=== PATIENT | female | born 1960 | race African-American/Black ===

== ENCOUNTER 2022-04-28 11:22 | Inpatient (IN) | payer MEDICAID, OTHER ==
[~2022-04-28] VITALS: Ht 157.5 cm; Wt 158.9 kg
[2022-04-28] MEDS ORDERED: ACETAMINOPHEN 650 MG/ISO-OSM 65 ML IV ONE (12:15)
[2022-04-28] MEDS ORDERED: SODIUM CHLORIDE 0.9% 500 ML IV ONE (12:15)
[2022-04-28 12:23] LABS: BASOPHILS % (AUTO) 0.5 % (0.0-2.0); EOSINOPHILS % (AUTO) 0 % (1.0-6.0); HEMATOCRIT 34.5 % (36-46); HEMOGLOBIN 11.4 g/dL (12.0-16.0); LYMPHOCYTES # (AUTO) 0.5 K/uL (1.0-4.8); LYMPHOCYTES % (AUTO) 4.7 % (22.0-44.0); MEAN CORPUSCULAR HEMOGLOBIN 31.3 pg (26.0-34.0); MEAN CORPUSCULAR HGB CONC 33.1 G/dL (31.0-37.0); MEAN CORPUSCULAR VOLUME 95 fL (80-100); MONOCYTES # (AUTO) 0.8 K/uL (0.1-1.0); MONOCYTES % (AUTO) 7.3 % (2.0-9.0); NEUTROPHILS # (AUTO) 9.7 K/uL (1.8-7.7); PLATELET COUNT (AUTO) 167 K/uL (150-450); RED BLOOD CELL COUNT(AUTO) 3.65 MIL/uL (4.00-5.20); RED CELL DISTRIBUTION WIDTH 15.9 % (11.5-14.5)
[2022-04-28 12:27] LABS: NEUTROPHILS % (AUTO) 87.5 % (40.0-70.0)
[2022-04-28] MEDS ORDERED: PIPERACILLIN/TAZO 3.375 GM/D5W 50 ML IV ONE (12:30)
[2022-04-28 12:31] LABS: CALCIUM, TOTAL 9.3 mg/dL (8.8-10.5); CREATININE 5.8 mg/dL (0.60-1.30); POTASSIUM 4.9 mmol/L (3.5-5.1)
[2022-04-28 12:34] LABS: COVID AG,FIA SOURCE NASAL SWAB
[2022-04-28 12:37] LABS: ALBUMIN 3.2 g/dL (3.4-5.0); BILIRUBIN,TOTAL 0.4 mg/dL (0.1-1.0); TOTAL PROTEIN, SERUM 9.3 g/dL (6.4-8.2)
[2022-04-28 12:48] LABS: LACTIC ACID 2.8 mmol/L (0.4-2.0)
[2022-04-28 12:50] LABS: INR 1.1 (0.9-1.1); PROTHROMBIN TIME 11.5 SEC (9.4-11.6)
[2022-04-28] MEDS ORDERED: VANCOMYCIN 1GM/WATER(PEG/NADA) 200 ML IV ONE (13:00)
[2022-04-28 13:35] LABS: INFLUENZA TYPE A NEGATIVE FOR TYPE A (NEGATIVE); INFLUENZA TYPE B NEGATIVE FOR TYPE B (NEGATIVE)
[2022-04-28] MEDS ORDERED: CALC667T6 PO (17:05)
[2022-04-28 20:33] VITALS: BP 106/74
[2022-04-29] VITALS (7 sets, daily range): BP systolic 93–113; BP diastolic 52–72
[2022-04-29] MEDS ORDERED: SODIUM CHLORIDE 0.9% 1,000 ML IV SCH (05:15)
[2022-04-29] MEDS ORDERED: MORPHINE SULFATE 2 MG/ML SYRINGE IVP PRN (05:30)
[2022-04-29] MEDS ORDERED: ONDANSETRON HCL 4 MG/2 ML VIAL IVP PRN ×2 (05:30→16:45)
[2022-04-29] MEDS ORDERED: ACETAMINOPHEN 325 MG TABLET PO PRN (05:30)
[2022-04-29] MEDS ORDERED: VANCOMYCIN HCL 1 GM in DEXTROSE 5%-WATER 250 ML IV PRN (05:45)
[2022-04-29] MEDS ORDERED: PIPERACILLIN SODIUM/TAZOBACTAM 2.25 GM in DEXTROSE 5%-WATER 50 ML IV SCH (06:00)
[2022-04-29 06:46] LABS: BASOPHILS % (AUTO) 0.9 % (0.0-2.0); EOSINOPHILS % (AUTO) 1.4 % (1.0-6.0); HEMATOCRIT 27.9 % (36-46); HEMOGLOBIN 9.3 g/dL (12.0-16.0); LYMPHOCYTES # (AUTO) 0.8 K/uL (1.0-4.8); LYMPHOCYTES % (AUTO) 11.5 % (22.0-44.0); MEAN CORPUSCULAR HEMOGLOBIN 31.2 pg (26.0-34.0); MEAN CORPUSCULAR HGB CONC 33.2 G/dL (31.0-37.0); MEAN CORPUSCULAR VOLUME 94 fL (80-100); MONOCYTES # (AUTO) 0.8 K/uL (0.1-1.0); MONOCYTES % (AUTO) 11.5 % (2.0-9.0); NEUTROPHILS % (AUTO) 74.7 % (40.0-70.0); PLATELET COUNT (AUTO) 126 K/uL (150-450); RED BLOOD CELL COUNT(AUTO) 2.98 MIL/uL (4.00-5.20); RED CELL DISTRIBUTION WIDTH 15.5 % (11.5-14.5)
[2022-04-29 06:55] LABS: CALCIUM, TOTAL 8.5 mg/dL (8.8-10.5); CREATININE 7.78 mg/dL (0.60-1.30); POTASSIUM 5.2 mmol/L (3.5-5.1)
[2022-04-29 07:01] LABS: ALBUMIN 2.5 g/dL (3.4-5.0); BILIRUBIN,TOTAL 0.4 mg/dL (0.1-1.0); TOTAL PROTEIN, SERUM 7.2 g/dL (6.4-8.2)
[2022-04-29] MEDS ORDERED: VANCOMYCIN 1GM/WATER(PEG/NADA) 200 ML IV ONE (08:00)
[2022-04-29] MEDS ORDERED: HEPARIN SODIUM,PORCINE 5,000 UNITS/ML VIAL SQ SCH (08:00)
[2022-04-29] MEDS ORDERED: VANCOMYCIN HCL 1.5 GM in DEXTROSE 5%-WATER 250 ML IV ONE (08:00)
[2022-04-29] MEDS: PIPERACILLIN SODIUM/TAZOBACTAM 2.25 GM in DEXTROSE 5%-WATER 50 ML IV SCH ×2 (15:07→21:49)
[2022-04-29] MEDS ORDERED: BISACODYL 10 MG RECTAL RECTAL SUPPOSITORY PR PRN (16:45)
[2022-04-29] MEDS ORDERED: ALBUTEROL SULFATE 2.5 MG/0.5 ML NEB SOLUTION NEB PRN (16:45)
[2022-04-29] MEDS ORDERED: MAGNESIUM HYDROXIDE SUSPENSION 30 ML UDCUP PO PRN (16:45)
[2022-04-29] MEDS ORDERED: IPRATROPIUM BROMIDE 0.5 MG/2.5 ML NEB SOLUTION NEB PRN (16:45)
[2022-04-29] MEDS ORDERED: ZOLPIDEM TARTRATE 5 MG TABLET PO PRN (16:45)
[2022-04-29] MEDS ORDERED: ALBUTEROL SULFATE HFA 90 MCG/PUFF 8 GM INHALER IH PRN (17:30)
[2022-04-29] MEDS: CALCIUM ACETATE 667 MG CAPSULE PO SCH (18:05)
[2022-04-29] MEDS: MORPHINE SULFATE 2 MG/ML SYRINGE IVP PRN (18:05)
[2022-04-29] MEDS: HYDROCODONE/ACETAMINOPHEN 5-325 MG TABLET PO PRN (20:13)
[2022-04-29] MEDS: BECLOMETHASONE DIPR HFA 80 MCG/PUFF 10.6 GM INHALER IH SCH (21:00)
[2022-04-29] MEDS: HEPARIN SODIUM,PORCINE 5,000 UNITS/ML VIAL SQ SCH (23:52)
[2022-04-30] VITALS (14 sets, daily range): BP systolic 94–132; BP diastolic 40–86
[2022-04-30] MEDS: PIPERACILLIN SODIUM/TAZOBACTAM 2.25 GM in DEXTROSE 5%-WATER 50 ML IV SCH ×3 (05:43→23:06)
[2022-04-30] MEDS: HYDROCODONE/ACETAMINOPHEN 5-325 MG TABLET PO PRN ×3 (06:32→16:52)
[2022-04-30] MEDS: PANTOPRAZOLE SODIUM 40 MG DR TABLET PO SCH (08:16)
[2022-04-30] MEDS: BECLOMETHASONE DIPR HFA 80 MCG/PUFF 10.6 GM INHALER IH SCH ×2 (08:16→21:40)
[2022-04-30] MEDS: CALCIUM ACETATE 667 MG CAPSULE PO SCH ×3 (08:16→18:33)
[2022-04-30] MEDS: HEPARIN SODIUM,PORCINE 5,000 UNITS/ML VIAL SQ SCH ×2 (08:16→16:52)
[2022-04-30] MEDS: MORPHINE SULFATE 2 MG/ML SYRINGE IVP PRN (08:30)
[2022-04-30] MEDS: PIPERACILLIN SODIUM/TAZOBACTAM 0.75 GM in DEXTROSE 5%-WATER 50 ML IV PRN (21:39)
[2022-04-30] MEDS: ETHYL ALCOHOL 62% ANTISEPTIC NASAL SANITIZER 0.6 ML AMPUL NASAL SCH (21:40)
[2022-04-30] MEDS ORDERED: SODIUM CHLORIDE 0.9% 100 ML ONE (21:52)
[2022-04-30] MEDS ORDERED: IOHEXOL 350 MG/ML 100 ML VIAL ONE (21:52)
[2022-05-01] VITALS (13 sets, daily range): BP systolic 91–119; BP diastolic 49–74
[2022-05-01] MEDS: ACETAMINOPHEN 325 MG TABLET PO PRN ×2 (03:01→22:09)
[2022-05-01] MEDS: PIPERACILLIN SODIUM/TAZOBACTAM 2.25 GM in DEXTROSE 5%-WATER 50 ML IV SCH (06:02)
[2022-05-01 06:44] LABS: BASOPHILS % (AUTO) 0.5 % (0.0-2.0); EOSINOPHILS % (AUTO) 3.3 % (1.0-6.0); HEMATOCRIT 27.7 % (36-46); HEMOGLOBIN 9.2 g/dL (12.0-16.0); LYMPHOCYTES # (AUTO) 1.3 K/uL (1.0-4.8); LYMPHOCYTES % (AUTO) 17.4 % (22.0-44.0); MEAN CORPUSCULAR HEMOGLOBIN 31.7 pg (26.0-34.0); MEAN CORPUSCULAR HGB CONC 33.4 G/dL (31.0-37.0); MEAN CORPUSCULAR VOLUME 95 fL (80-100); MONOCYTES # (AUTO) 0.7 K/uL (0.1-1.0); MONOCYTES % (AUTO) 9.7 % (2.0-9.0); NEUTROPHILS # (AUTO) 5.1 K/uL (1.8-7.7); NEUTROPHILS % (AUTO) 69.1 % (40.0-70.0); PLATELET COUNT (AUTO) 132 K/uL (150-450); RED BLOOD CELL COUNT(AUTO) 2.92 MIL/uL (4.00-5.20); RED CELL DISTRIBUTION WIDTH 15.1 % (11.5-14.5)
[2022-05-01 07:13] LABS: ALBUMIN 2.2 g/dL (3.4-5.0); BILIRUBIN,TOTAL 0.3 mg/dL (0.1-1.0); CALCIUM, TOTAL 8.7 mg/dL (8.8-10.5); CREATININE 6.93 mg/dL (0.60-1.30); POTASSIUM 5.1 mmol/L (3.5-5.1); TOTAL PROTEIN, SERUM 7.1 g/dL (6.4-8.2); VANCOMYCIN,RANDOM 17.5 mcg/mL (25.0-50.0)
[2022-05-01] MEDS: PANTOPRAZOLE SODIUM 40 MG DR TABLET PO SCH (08:14)
[2022-05-01] MEDS: ETHYL ALCOHOL 62% ANTISEPTIC NASAL SANITIZER 0.6 ML AMPUL NASAL SCH ×2 (08:14→20:29)
[2022-05-01] MEDS: CALCIUM ACETATE 667 MG CAPSULE PO SCH ×3 (08:14→17:56)
[2022-05-01] MEDS: BECLOMETHASONE DIPR HFA 80 MCG/PUFF 10.6 GM INHALER IH SCH ×2 (08:15→20:29)
[2022-05-01] MEDS ORDERED: EPOETIN ALFA 10,000 UNITS/ML 2 ML VIAL SQ SCH (16:00)
[2022-05-01] MEDS ORDERED: VANCOMYCIN 1GM/WATER(PEG/NADA) 200 ML IV ONE (20:00)
[2022-05-01] MEDS: PIPERACILLIN SODIUM/TAZOBACTAM 0.75 GM in DEXTROSE 5%-WATER 50 ML IV PRN (22:09)
[2022-05-02] VITALS: BP 111/61
[2022-05-02] MEDS: PIPERACILLIN SODIUM/TAZOBACTAM 2.25 GM in DEXTROSE 5%-WATER 50 ML IV SCH ×3 (00:46→06:03)
[2022-05-02 04:00] VITALS: BP 121/70
[2022-05-02 06:30] LABS: BASOPHILS % (AUTO) 0.7 % (0.0-2.0); EOSINOPHILS % (AUTO) 3.7 % (1.0-6.0); HEMATOCRIT 29.7 % (36-46); HEMOGLOBIN 9.7 g/dL (12.0-16.0); LYMPHOCYTES # (AUTO) 1.3 K/uL (1.0-4.8); LYMPHOCYTES % (AUTO) 21.5 % (22.0-44.0); MEAN CORPUSCULAR HGB CONC 32.6 G/dL (31.0-37.0); MEAN CORPUSCULAR VOLUME 95 fL (80-100); MONOCYTES # (AUTO) 0.6 K/uL (0.1-1.0); MONOCYTES % (AUTO) 9.9 % (2.0-9.0); NEUTROPHILS # (AUTO) 3.8 K/uL (1.8-7.7); NEUTROPHILS % (AUTO) 64.2 % (40.0-70.0); PLATELET COUNT (AUTO) 144 K/uL (150-450); RED BLOOD CELL COUNT(AUTO) 3.13 MIL/uL (4.00-5.20); RED CELL DISTRIBUTION WIDTH 15.5 % (11.5-14.5)
[2022-05-02 07:02] LABS: ALBUMIN 2.3 g/dL (3.4-5.0); BILIRUBIN,TOTAL 0.3 mg/dL (0.1-1.0); CALCIUM, TOTAL 9.2 mg/dL (8.8-10.5); CREATININE 6.33 mg/dL (0.60-1.30); POTASSIUM 5.2 mmol/L (3.5-5.1); TOTAL PROTEIN, SERUM 7.6 g/dL (6.4-8.2)
[2022-05-02 07:11] VITALS: BP 111/69
[2022-05-02] MEDS: PANTOPRAZOLE SODIUM 40 MG DR TABLET PO SCH (08:16)
[2022-05-02] MEDS: ETHYL ALCOHOL 62% ANTISEPTIC NASAL SANITIZER 0.6 ML AMPUL NASAL SCH (08:16)
[2022-05-02] MEDS: CALCIUM ACETATE 667 MG CAPSULE PO SCH (08:16)
[2022-05-02 11:05] VITALS: BP 110/70
[2022-05-02] MEDS ORDERED: LEVO250T75 PO (12:44)
[2022-05-02] MEDS ORDERED: ASPI-1450 PO (12:44)
== END 2022-05-02 15:20 | disposition home or self-care (01) | DRG 720 ==
LOC: EMS 11:24 → 5S 19:46
PROVIDERS: ADMIT Hospitalist; ATTEND Hospitalist
PROC: 5A1D70Z Performance of Urinary Filtration, Intermittent, Less than 6 Hours Per Day (ICD-10-PCS; 2022-04-30)
PROC: 5A1D70Z Performance of Urinary Filtration, Intermittent, Less than 6 Hours Per Day (ICD-10-PCS; principal; 2022-05-02)
DX: A41.9 Sepsis, unspecified organism (principal); J96.21 Acute and chronic respiratory failure with hypoxia; D69.6 Thrombocytopenia, unspecified; I12.0 Hypertensive chronic kidney disease with stage 5 chronic kidney disease or end stage renal disease; E44.0 Moderate protein-calorie malnutrition; J18.9 Pneumonia, unspecified organism; D63.1 Anemia in chronic kidney disease; E83.39 Other disorders of phosphorus metabolism; Z20.822 Contact with and (suspected) exposure to COVID-19; N18.6 End stage renal disease; E66.01 Morbid (severe) obesity due to excess calories; G47.33 Obstructive sleep apnea (adult) (pediatric); E87.5 Hyperkalemia; G40.909 Epilepsy, unspecified, not intractable, without status epilepticus; J44.0 Chronic obstructive pulmonary disease with (acute) lower respiratory infection; I69.354 Hemiplegia and hemiparesis following cerebral infarction affecting left non-dominant side; Z99.2 Dependence on renal dialysis; Z68.44 Body mass index [BMI] 60.0-69.9, adult; Z99.81 Dependence on supplemental oxygen; Z79.82 Long term (current) use of aspirin; Z79.899 Other long term (current) drug therapy
CPT/HCPCS: 70450; 71045; 71260; 80053; 80202; 82550; 83605; 83880; 84484; 85025; 85610; 87040; 87077; 87081; 87205; 87340; 87804; 90935; 93005; 93306; 97162; 97166; 99285; J0131; J0885; J1644; J2270; J2543; J3370; J3535; J7030; J7040; J7050; J7060; Q9967; 36415-L1; 36415-TC

== ENCOUNTER 2024-02-01 13:09 | Inpatient (IN) | payer MEDICAID ==
[~2024-02-01] VITALS: Ht 162.6 cm; Wt 123.1 kg
[~2024-02-01 13:09] MED LIST: CALC667T6 PO; MIDO5TAB29 PO
[2024-02-01 13:52] LABS: BASOPHILS % (AUTO) 0.7 % (0.0-2.0); HEMATOCRIT 31.6 % (36-46); HEMOGLOBIN 10.6 g/dL (12.0-16.0); LYMPHOCYTES # (AUTO) 1.2 K/uL (1.0-4.8); LYMPHOCYTES % (AUTO) 11.3 % (22.0-44.0); MEAN CORPUSCULAR HEMOGLOBIN 32.7 pg (26.0-34.0); MEAN CORPUSCULAR HGB CONC 33.5 G/dL (31.0-37.0); MEAN CORPUSCULAR VOLUME 98 fL (80-100); MONOCYTES # (AUTO) 0.8 K/uL (0.1-1.0); MONOCYTES % (AUTO) 7.4 % (2.0-9.0); NEUTROPHILS # (AUTO) 8.5 K/uL (1.8-7.7); NEUTROPHILS % (AUTO) 79.6 % (40.0-70.0); PLATELET COUNT (AUTO) 235 K/uL (150-450); RED BLOOD CELL COUNT(AUTO) 3.24 MIL/uL (4.00-5.20); RED CELL DISTRIBUTION WIDTH 14.2 % (11.5-14.5); WHITE BLOOD COUNT (AUTO) 10.7 K/uL (4.5-11.0)
[2024-02-01 14:08] LABS: TROPONIN I-HIGH SENSITIVITY 23 ng/L (<51)
[2024-02-01 14:10] LABS: CALCIUM, TOTAL 8.5 mg/dL (8.8-10.5); CREATININE 5.7 mg/dL (0.60-1.30); POTASSIUM 3.8 mmol/L (3.5-5.1)
[2024-02-01 14:13] LABS: BILIRUBIN,TOTAL 0.3 mg/dL (0.1-1.0); TOTAL PROTEIN, SERUM 8.3 g/dL (6.4-8.2)
[2024-02-01] MEDS ORDERED: PHOSLOC PO (14:24)
[2024-02-01] MEDS ORDERED: CINA30 PO (14:24)
[2024-02-01] MEDS ORDERED: LEVE250T81 PO (14:24)
[2024-02-01] MEDS ORDERED: CLON0.1T2 PO (14:24)
[2024-02-01] MEDS ORDERED: CALC0.253 PO (14:24)
[2024-02-01] MEDS ORDERED: ATOR20TA PO (14:24)
[2024-02-01] MEDS ORDERED: MIDO5TAB29 PO (14:24)
[2024-02-01] MEDS ORDERED: HYDROCODONE/ACETAMINOPHEN 5-325 MG TABLET PO PRN (14:45)
[2024-02-01] MEDS ORDERED: ACETAMINOPHEN 325 MG TABLET PO PRN (14:45)
[2024-02-01] MEDS ORDERED: BISACODYL 10 MG RECTAL RECTAL SUPPOSITORY PR PRN (14:45)
[2024-02-01] MEDS ORDERED: MAGNESIUM HYDROXIDE SUSPENSION 30 ML UDCUP PO PRN (14:45)
[2024-02-01] MEDS ORDERED: MORPHINE SULFATE 2 MG/ML SYRINGE IVP PRN (14:45)
[2024-02-01] MEDS ORDERED: ONDANSETRON HCL 4 MG/2 ML VIAL IVP PRN (14:45)
[2024-02-01] MEDS ORDERED: ZOLPIDEM TARTRATE 5 MG TABLET PO PRN (14:45)
[2024-02-01] MEDS: HEPARIN SODIUM,PORCINE 5,000 UNITS/ML VIAL SQ SCH (15:02)
[2024-02-01] MEDS ORDERED: SODIUM CHLORIDE 0.9% 100 ML ONE (16:25)
[2024-02-01] MEDS ORDERED: IOHEXOL 350 MG/ML 100 ML VIAL ONE (16:26)
[2024-02-01] MEDS ORDERED: NITROGLYCERIN 0.4 MG SUBLINGUAL TABLET #25 SL PRN (16:30)
[2024-02-01] MEDS: CALCIUM ACETATE 667 MG CAPSULE PO SCH (19:23)
[2024-02-01] MEDS: CINACALCET HCL 30 MG TABLET PO SCH (19:23)
[2024-02-01] MEDS: DOCUSATE SODIUM 100 MG CAPSULE PO SCH (21:00)
[2024-02-01 21:44] VITALS: BP 126/75; PULSE 94; RESP 20; TEMP 98.6; O2SAT 97
[2024-02-01] MEDS: ATORVASTATIN CALCIUM 20 MG TABLET PO SCH (22:10)
[2024-02-01] MEDS: LevETIRAcetam 250 MG TABLET PO SCH (22:11)
[2024-02-01] MEDS: MIDODRINE HCL 5 MG TABLET PO SCH (22:11)
[2024-02-02] VITALS (8 sets, daily range): BP systolic 106–128; BP diastolic 60–68; PULSE 84–109; RESP 18–28; TEMP 98.2–98.8; O2SAT 94–99
[2024-02-02] MEDS: ALBUTEROL SULFATE 2.5 MG/0.5 ML NEB SOLUTION NEB PRN (00:03)
[2024-02-02] MEDS: IPRATROPIUM BROMIDE 0.5 MG/2.5 ML NEB SOLUTION NEB PRN (00:04)
[2024-02-02 07:11] LABS: BASOPHILS % (AUTO) 0.5 % (0.0-2.0); EOSINOPHILS % (AUTO) 1.6 % (1.0-6.0); HEMATOCRIT 28.5 % (36-46); HEMOGLOBIN 9.6 g/dL (12.0-16.0); LYMPHOCYTES # (AUTO) 1.2 K/uL (1.0-4.8); LYMPHOCYTES % (AUTO) 14.9 % (22.0-44.0); MEAN CORPUSCULAR HEMOGLOBIN 32.9 pg (26.0-34.0); MEAN CORPUSCULAR HGB CONC 33.5 G/dL (31.0-37.0); MEAN CORPUSCULAR VOLUME 98 fL (80-100); MONOCYTES # (AUTO) 0.7 K/uL (0.1-1.0); MONOCYTES % (AUTO) 9.4 % (2.0-9.0); NEUTROPHILS # (AUTO) 5.7 K/uL (1.8-7.7); NEUTROPHILS % (AUTO) 73.6 % (40.0-70.0); PLATELET COUNT (AUTO) 196 K/uL (150-450); RED CELL DISTRIBUTION WIDTH 14.1 % (11.5-14.5); WHITE BLOOD COUNT (AUTO) 7.7 K/uL (4.5-11.0)
[2024-02-02 07:32] LABS: CALCIUM, TOTAL 8.1 mg/dL (8.8-10.5); CHOL/HDL RATIO 5.1 (3.9-5.7); CREATININE 7.12 mg/dL (0.60-1.30); POTASSIUM 4.6 mmol/L (3.5-5.1)
[2024-02-02 07:40] LABS: TROPONIN I-HIGH SENSITIVITY 26 ng/L (<51)
[2024-02-02] MEDS: CALCITRIOL 0.25 MCG CAPSULE PO SCH (08:34)
[2024-02-02] MEDS: ASPIRIN 81 MG DR TABLET PO SCH (08:35)
[2024-02-02] MEDS: PANTOPRAZOLE SODIUM 40 MG/VIAL IVP SCH (08:36)
[2024-02-02] MEDS ORDERED: ASPI-1444 PO (16:53)
== END 2024-02-02 18:45 | disposition home or self-care (01) | DRG 194 ==
LOC: EMS 13:09 → EDH 14:49 → 5S 21:03
PROVIDERS: ADMIT Hospitalist; ATTEND Hospitalist
DX: I13.2 Hypertensive heart and chronic kidney disease with heart failure and with stage 5 chronic kidney disease, or end stage renal disease (principal); I50.33 Acute on chronic diastolic (congestive) heart failure; D63.1 Anemia in chronic kidney disease; N18.6 End stage renal disease; J44.9 Chronic obstructive pulmonary disease, unspecified; E66.01 Morbid (severe) obesity due to excess calories; R07.89 Other chest pain; G40.909 Epilepsy, unspecified, not intractable, without status epilepticus; Z99.2 Dependence on renal dialysis; Z68.42 Body mass index [BMI] 45.0-49.9, adult; Z86.73 Personal history of transient ischemic attack (TIA), and cerebral infarction without residual deficits
CPT/HCPCS: 71045; 71275; 80048; 80053; 80061; 83880; 84484; 85025; 85379; 93005; 93306; 94640; 97163; 97166; 97535; 99285; C9113; J1644; J7050; 36415-L1; 36415-TC; J7613